=== PATIENT | female | born 1990 ===

== ENCOUNTER 2020-03-07 14:15 | Outpatient (REF) | payer MEDICAID, SELFPAY ==
[2020-03-11 07:27] LABS: SARS-CoV-2 RNA Undetected (Undetected); SARS-CoV-2 Specimen Source Nasal
== END 2020-03-07 14:35 ==
LOC: NCHCN 14:15
PROVIDERS: PCP Nurse Practitioner Family; Visit Provider Nurse Practitioner Family
DX: J02.9 Acute pharyngitis, unspecified (principal); R51.9 Headache, unspecified
CPT/HCPCS: U0003

== ENCOUNTER 2024-04-27 02:57 | Outpatient (CLI) | payer MEDICAID, SELFPAY ==
[2024-04-27 11:10] LABS: Panorama Kit Sent via Fed Ex
[2024-04-27 11:18] LABS: Abs Immature Grans 0.03 10^3/uL (0.0-0.06); Absolute Basophil Count 0.02 10^3/uL (0.0-0.2); Absolute Eosinophil Count 0.02 10^3/uL (0.0-0.7); Absolute Lymphocyte Count 1.62 10^3/uL (1.2-3.4); Absolute Monocyte Count 0.49 10^3/uL (0.1-0.8); Basophils % 0.2 %; Eosinophils % 0.2 %; HCT 35.3 % (36.0-46.0); HGB 12.6 g/dL (11.2-15.7); Immature Grans % 0.3 %; Lymphocytes % 14.8 %; MCH 30.1 pg (27.0-33.0); MCHC 35.7 % (32.0-36.0); MCV 84 fL (80-95); MPV 9.4 fL (8.0-11.0); Monocytes % 4.5 %; Platelet Count 287 10^3/uL (130-400); RBC 4.18 10^6/uL (3.93-5.22); RDW 11.8 % (11.7-14.6); RDW-SD 35.8 fL; WBC 10.94 10^3/uL (4.4-10.8)
[2024-04-27 11:19] LABS: Absolute Neutrophil Count 8.75 10^3/uL (1.2-6.7)
[2024-04-27 23:04] LABS: Hepatitis B Surface Ag Negative (Negative)
[2024-04-27 23:41] LABS: Hepatitis C Ab w Rflx HCV PCR Negative (Negative)
[2024-04-27 23:45] LABS: HIV-1/2 Ag & Ab Screen Negative (Negative)
[2024-04-28 12:06] LABS: Rubella IgG Ab (UVM) Negative (See Note)
[2024-04-28 12:09] LABS: Varicella IgG Antibody Positive (See Note)
[2024-04-30 14:09] LABS: Syphilis IgG w/Reflex Nonreactive (Nonreactive)
[2024-05-26 11:04] LABS: Result Summary NEGATIVE; Specimen WB Whole Blood
== END 2024-04-27 02:58 | disposition home or self-care (01) ==
LOC: LBO 02:58
PROVIDERS: PCP Nurse Practitioner Family; Visit Provider Advanced Practice Midwife
DX: Z34.91 Encounter for supervision of normal pregnancy, unspecified, first trimester (principal); Z3A.01 Less than 8 weeks gestation of pregnancy; R87.610 Atypical squamous cells of undetermined significance on cytologic smear of cervix (ASC-US)
CPT/HCPCS: 36415; 81220; 81222; 86787; 86803; 86850; 86900; 86901; 87340; 87389; 85025; 86762; 86780

== ENCOUNTER 2024-04-27 11:04 | Outpatient (REF) | payer MEDICAID, SELFPAY ==
--- NOTE | 2024-04-27 10:00 | PAPFT_PTH ---
PATIENT: Elda Rock LOC: [facility] [id number] AGE/SX: 33/F ROOM: RE04/27/[address]: Vinita Bella CNM : 1990 BED: DIS: 04/27/2024 SPEC #: [id number] RECD: 04/27/24 13:02 STATUS: LAURA REFred #: [id number] ANTONIO: 04/27/24 10:[address]: Vinita Bella DEPT: [facility] Cytology RECD BY: Adrianna Hopson ENTERED: 04/27/24 13:02 SP TYPE: PAPFT OTHR DR: Dennis Goncalves Tissues: 1 - CX/ENDOCX FOR PAP SMEARS Procedures: PAP THIN PREP/UVM Screening HPV DNA PROBE Comments: [id number] (HPV 16 & 18/45) (CHLAMYDIA/GC)
[2024-04-27 18:27] LABS: *AMPHETAMINES SCREEN URINE Negative (Negative); *BARBITURATES SCREEN URINE Negative (Negative); *BENZODIAZEPINES SCREEN URINE Negative (Negative); Cannabinoids THC Negative (Negative); Cocaine Screen,Urine Negative (Negative); METHADONE URINE SCREEN Negative (Negative); OPIATES URINE SCREEN Negative (Negative)
[2024-04-27 18:34] LABS: Tricyclic Antidepressants Negative (Negative)
[2024-04-28 11:16] LABS: Chlamydia Result Negative (Negative); GC Result Negative (Negative)
[2024-04-29 12:03] LABS: Fentanyl Scr w/Rfx Confirm Negative ng/mL (<1)
[2024-05-01 12:41] LABS: Buprenorphine Negative ng/mL (Cutoff: 5.0); Norbuprenorphine Negative ng/mL (Cutoff: 2.5)
== END 2024-04-27 11:05 | disposition home or self-care (01) ==
LOC: LBN 11:04
PROVIDERS: PCP Nurse Practitioner Family; Visit Provider Advanced Practice Midwife
DX: Z34.91 Encounter for supervision of normal pregnancy, unspecified, first trimester (principal); Z3A.01 Less than 8 weeks gestation of pregnancy; R87.610 Atypical squamous cells of undetermined significance on cytologic smear of cervix (ASC-US)
CPT/HCPCS: 80307; 80348; 87491; 87591; 88142; 87086; 87624

== ENCOUNTER 2024-06-25 00:26 | Outpatient (CLI) | payer MEDICAID, SELFPAY ==
--- NOTE | 2024-06-25 06:58 | DI.US_ITS ---
Exam(s) US OB 2-3 TRIMESTER EXAM: US OB 2-3 TRIMESTER CLINICAL HISTORY: 19 wk anatomy survey,Z34.91. TECHNIQUE: Transabdominal obstetrical ultrasound performed. COMPARISON: US POCUS EXAM from 03/22/2024 FINDINGS: Number of fetuses: 1 position: Variable Placental location: Anterior, grade 0. no evidence of previa. BIOMETRIC DATA: BPD: 20 weeks 4 days, HC: 20 weeks 5 days, AC: 20 weeks 4 days, FL: 20 weeks 1 day, Cisterna magna: 5 Cerebellum: 2.0 cm Lateral ventricle: 6 mm EFW: 355, 63 percentile, Composite Age: 20+ 4 weeks XAVIER: November 12 Heart Rate: 142 Amniotic fluid : Amount of fluid is visually within normal limits. ANATOMICAL SURVEY: Four-chambered heart: Unremarkable. LVOT: Unremarkable. RVOT: Unremarkable. Left-sided stomach: Unremarkable. urinary bladder: Unremarkable. Bilateral kidneys: Unremarkable. Three-vessel cord: Unremarkable. Cord insertion: Unremarkable. Posterior fossa:Unremarkable. ventricles: Unremarkable. nose: Unremarkable. lips: Unremarkable. palate: Unremarkable. spine: Unremarkable. Two arms and two legs: Unremarkable. IMPRESSION: 1. Single live intrauterine gestation with composite age of 20 weeks 4 days. 2. Normal anatomic survey. DATA REPOSITORY:
== END 2024-06-25 00:46 ==
LOC: DI 00:27
PROVIDERS: PCP Nurse Practitioner Family; Visit Provider Advanced Practice Midwife
DX: Z34.92 Encounter for supervision of normal pregnancy, unspecified, second trimester (principal); Z3A.20 20 weeks gestation of pregnancy
CPT/HCPCS: 76805

== ENCOUNTER 2024-08-19 03:47 | Outpatient (CLI) | payer MEDICAID, SELFPAY ==
[2024-08-19 09:58] LABS: HCT 34.6 % (36.0-46.0); HGB 11.9 g/dL (11.2-15.7); MCH 31.3 pg (27.0-33.0); MCHC 34.4 % (32.0-36.0); MCV 91 fL (80-95); MPV 9.5 fL (8.0-11.0); Platelet Count 220 10^3/uL (130-400); RDW 12.2 % (11.7-14.6)
[2024-08-19 10:40] LABS: Glucose,1 Hr (Glucola) 122 mg/dL (80-140)
== END 2024-08-19 03:48 | disposition home or self-care (01) ==
LOC: LBO 03:48
PROVIDERS: Advanced Practice Midwife; PCP Nurse Practitioner Family; Visit Provider Advanced Practice Midwife
DX: Z34.92 Encounter for supervision of normal pregnancy, unspecified, second trimester
CPT/HCPCS: 36415; 82950; 85027

== ENCOUNTER 2024-09-02 13:00 | Outpatient (REF) | payer MEDICAID, SELFPAY ==
[2024-09-02 16:50] LABS: *AMPHETAMINES SCREEN URINE Negative (Negative); *BARBITURATES SCREEN URINE Negative (Negative); *BENZODIAZEPINES SCREEN URINE Negative (Negative); Cannabinoids THC Negative (Negative); Cocaine Screen,Urine Negative (Negative); METHADONE URINE SCREEN Negative (Negative); OPIATES URINE SCREEN Negative (Negative)
[2024-09-02 16:51] LABS: Tricyclic Antidepressants Negative (Negative)
[2024-09-03 11:31] LABS: Fentanyl Scr w/Rfx Confirm Negative ng/mL (<1)
[2024-09-08 08:40] LABS: Buprenorphine Negative ng/mL (Cutoff: 5.0); Norbuprenorphine Negative ng/mL (Cutoff: 2.5)
== END 2024-09-02 13:01 | disposition home or self-care (01) ==
LOC: LBN 13:00
PROVIDERS: Advanced Practice Midwife; PCP Nurse Practitioner Family; Visit Provider Advanced Practice Midwife
DX: Z34.83 Encounter for supervision of other normal pregnancy, third trimester (principal); Z3A.28 28 weeks gestation of pregnancy
CPT/HCPCS: 80307; 80348

== ENCOUNTER 2024-10-15 11:39 | Outpatient (REF) | payer MEDICAID, SELFPAY | END 2024-10-15 11:40 | disposition home or self-care (01) | LOC: LBN 11:39 | PROVIDERS: PCP Nurse Practitioner Family; Visit Provider Advanced Practice Midwife | DX: Z3A.36 36 weeks gestation of pregnancy (principal); Z34.83 Encounter for supervision of other normal pregnancy, third trimester | CPT/HCPCS: 87081 ==

== ENCOUNTER 2024-11-15 13:57 | Inpatient (IN) | payer MEDICAID, SELFPAY ==
[2024-11-15] VITALS (31 sets, daily range): BP systolic 112–144; BP diastolic 67–88; PULSE 90–118; RESP 18; TEMP 36.8–37.9; O2SAT 96–100; BMI 28.3
[2024-11-15 14:20] LABS: HCT 32.3 % (36.0-46.0); HGB 10.9 g/dL (11.2-15.7); MCH 28.3 pg (27.0-33.0); MCHC 33.7 % (32.0-36.0); MCV 84 fL (80-95); MPV 10.1 fL (8.0-11.0); Platelet Count 237 10^3/uL (130-400); RBC 3.85 10^6/uL (3.93-5.22); RDW 12.5 % (11.7-14.6); RDW-SD 37.5 fL; WBC 13.25 10^3/uL (4.4-10.8)
[2024-11-15] MEDS: hydrOXYzine PAMOATE 25 MG CAP 50 MG PO (14:56)
[2024-11-15] MEDS: MORPHine 10 MG/ML VIAL IM (14:56)
--- NOTE | 2024-11-15 16:04 | W.PM.OBHPL1 ---
Date of service: 11/15/24 Time of Service: 16:04 Assessment and Plan Assessment and plan (1) Prolonged latent phase of labor: Status: Acute Assessment and plan: Admit to Center and routine admission labs. Comfort measures. Anticipate . Discussed therapeutic rest option due to her fatigue or continuing to observe labor progress. She strongly desires rest at this time and was admitted for therapeutic rest with morphine 10 mg IM and vistaril PO. Sherry Mason JUAN DAVID will be assuming her care at 1700. OB-HPI Labor/Delivery History of Present Illness Reason for Visit: rule out labor Chief Complaint: Uterine Contractions. XAVIER Calculator Estimated Delivery Date Method Current WG Current Estimate 11/11/24 Ultrasound #1 40w 4d Other Estimates 10/17/24 LMP (Uncertain) 44w 1d Comments: Elda has been experiencing contractions all night. She got very little sleep and she complains of fatigue. History of Present Expected Delivery Route/Plan - CNM FOB/ - Edinson Rock (first child) BB no circ Interested in using the large tub in labor, Took empowered birthing classes. Rubella non-immune, offer MMR (pt plans to accept) GBS negative Specific Issues/Plan 1. cfDNA- low risk male, CF carrier screen - neg 2. 5P screen positive, initial UDS negative, 28 wk UDS=negative Assessment: History Reviewed & Current Informed Consent Informed Consent: Risk,Benefits,Alternatives Discussed (therapeutic rest or continuing with prodromal labor. ) PFSH All Active Problems (Updated 11/15/24 @ 16:07 by Ana Hui CNM) Prolonged latent phase of labor (Acute) Rubella non-immune status, antepartum (Acute) Mild exercise-induced asthma (Acute) (Acute) Medical History (Updated 11/15/24 @ 16:07 by Ana Hui CNM) Positive test Social History Smoking/Tobacco Use Status: Never Smoking risk assessment performed?: Yes Alcohol Intake: never Substance use type: does not use Housing: house Do you feel safe at home: Yes Do you feel safe in your relationship?: Yes History History 1 Para 0 Hx # Term Pregnancies 0 Multiple births 0 Hx # Pregnancies 0 Ectopic pregnancies 0 AB induced 0 Hx Number of Living Children 0 AB spontaneous 0 Meds Allergies and Home Medications Allergies Allergy/AdvReac Type Severity Reaction Status Date / Time No Known Allergies Allergy Verified 11/12/24 10:22 Home Medications ?Medication ?Instructions ?Recorded ?Confirmed ?Type vits 75-iron 28 mg-folic 1 pkg PO DAILY 03/22/24 11/15/24 History acid 800 mcg-omega3 440 mg oral pack (One Daily ) Exam Physical Exam Vital signs: Temp Pulse Resp BP Pulse Ox 98.4 F 98 H 18 136/88 100 11/15/24 14:11/15/24 14:28 11/15/24 14:11/15/24 14:11/15/24 14:28 Vital Signs Reviewed: Yes Constitutional Constitutional: no acute distress Detailed Labor and Delivery Exam Dilation: 2 Effacement (%): 80 station: +1 Cervix position: posterior Consistency: soft Lincoln Score: Cervical Points Exam 0 1 2 3 Dilation Closed 1-2cm 3-4 cm 5-6cm Effacement 0-30% 40-50% 60-70% 80% Consistency Firm Medium Soft Station -3 -2 -1,0 +1,+2 Position Posterior Mid Anterior Amniotic Membrane Status: Intact Monitor Mode: External Contraction Frequency(min): every 3 Contraction Duration(sec): 40-60 Contraction Intensity: Moderate Fetus A Heart Rate Baseline: 140 Monitor Accelerations: 15 X 15 Monitor Decelerations: None Variability: Moderate (6-25 BPM) Presentation: Cephalic Categories: Category I Est. Weight: 7 lb Date of Membrane Rupture: 11/15/24 Time of Membrane Rupture: 15:29 HEENT Exam HEENT Exam: Normal Respiratory Exam Respiratory Exam: Normal Cardiovascular Exam Cardiovascular Exam: Normal Abdominal Exam Abdominal Exam: Normal Exam Exam: Normal Extremities Exam Extremities Exam: Normal Skin Exam Skin Exam: Normal Psychiatric Exam Psychiatric Exam: Normal Results Results Group Beta Strep: N/A Blood Type: O+ Abnormal Lab Findings: Abnormal Labs 11/15/24 14:10 WBC 13.25 H RBC 3.85 L Hgb 10.9 L Hct 32.3 L Risk Assessment Risk for Shoulder Dystocia Historical/Initial OB: NEGATIVE FOR: Pelvic Abnormality, Pre- BMI>30, Previous Shoulder Dystocia or Previous Macrosomia 36 Weeks: NEGATIVE FOR: Current Gestational DM, EFW>4500gms or Maternal Weight Gain>40lbs 40 Weeks: POSTIVE FOR: Post Dates; NEGATIVE FOR: EFW> 4500 gms or Maternal Weight Gain >40lb Increased Risk?: Yes Risk for Pre-Eclampsia Date Initiated/Initials: not indicated. JK Yes, if one or more: NEGATIVE FOR: Hx Pre-E/Gest HTN, Chronic HTN, Multiple Gestation, Pre-gestational DM, Renal Disease, Systemic Lupus or APA Syndrome Yes, if 2 or more: POSITIVE FOR: Nulliparity; NEGATIVE FOR: Age>= 35 yrs, >10yr btwn pregnancies, BMI>30, ethinicty, Mother/Sister w/ Pre-E or Previous IUGR Risk for Post- Hemorrhage Initial: NEGATIVE FOR: Multiple Gestation, Previous PPH, Known Clotting Deficiency, Grand Multiparity or Anticoagulation 36 Weeks: NEGATIVE FOR: Anemia, hgb<10, Low platelets(thrombocytopenia), Gestational HTN or Pre-E, Polyhydraminios or EFW>4500gms 40 Weeks: NEGATIVE FOR: Anemia, hgb<10, Low platelets (thrombocytopenia), Gestation HTN or Pre-E, Polyhydraminios or EFW>4500gms At Risk?: No Risks Reviewed Risks Reviewed Upon Admission: Yes
--- NOTE | 2024-11-15 16:18 | W.OBNST ---
Date of service: 11/15/24 Time of Service: 16:18 NST Evaluation Reason for NST Reasons for Nonstress Test: FALSE LABOR Gestational Age Gestational Age in Weeks and Days: 40 Weeks and 4Days Test and Monitor Explained Test/Monitor Explained: Test Explained, Monitor Explained and Patient Verbalized Understanding Vital Signs Blood Pressure: 136/88 Pulse: 98 Temperature: 98.4 F Urine Results Urine Protein: Negative Urine Ketones: Negative Urine Glucose: Negative Urine Blood: Negative NST Information Date on Monitor: 11/15/24 Time on Monitor: 13:30 Date off Monitor: 11/15/24 Time off Monitor: 13:56 Total Time on Monitor: 26 NST Interventions: Reposition Patient and Notify Provider Contraction Frequency: 3 NST Evaluation Patient States Movement: Present FHR Baseline: 150 Variability: Moderate 6-25 bpm Accelerations: 15x15 Decelerations: None NST Results: Reactive Note Ultrasound Done: N/A. NST Note Note: Elda has been having regular contractions since last night. She is tired and got very little sleep. 2 cms/+1/ soft posterior cervix. Reactive. NST. After reviewing options with Elda and her Edinson, Elda is admitted in early labor for therapeutic rest, NST Reviewed and Verified by: Ana Hui
--- NOTE | 2024-11-15 21:40 | W.PM.OBNL1 ---
Date of service: 11/15/24 Time of Service: 21:40 Informed Consent Informed Consent: Augmentation of Labor, Regional Anesthesia and Risk,Benefits,Alternatives Discussed (therapeutic rest or continuing with prodromal labor. ) Pelvic Exam Dilation: 3 Effacement (%): 80 station: 0 Cervix Position: mid Consistency: soft Vaginal Exam Presentation: Vertex Contractions Monitor Mode: External Contraction Frequency(min): 4-5 mins by observation Contraction Duration(sec): 45-60 sec Intensity: Mild/Moderate (By observation/palpation) Fetus A Monitor: Doppler Heart Rate Baseline: 155 Presentation: Cephalic FHR Rhythm: Regular Accelerations: Present Decelerations: None Amniotic Membrane Status: Ruptured (Leaking clear fluid) Rupture Method: Spontaneous Date of Membrane Rupture: 11/15/24 Time of Membrane Rupture: 15:30 Assessment and Plan Assessment and plan (1) Amniotic fluid leaking: Start date: 11/15/24 Start time: 15:30 Status: Acute Assessment and plan: - 34-year-old at 40+4 here with prodromal labor, ROM x 6.5 hours - Discussed SVE findings with patient: 1 cm change with cervix moving more anteriorly over approx 8 hours, slowly progressing. Reviewed with patient that latent labor is highly variable in terms of the amount of time it can take to make cervical change. - Reviewed options with Elda and Edinson: Continue labor with or without another trial of Morphine rest (with the addition of IV Morphine to see if this improves pain mgmt) vs epidural analgesia to achieve longer period of rest prior to the 2nd stage and can aid in the relaxation of the pelvis. Reviewed IV placement, IVF bolus, inability to get out of bed or eat solids, urinary catheter placement, cEFM & toco, possibility of need for Pitocin augmentation if contractions space/for suboptimal contraction pattern. Elda wishes to proceed with epidural. - Anesthesia called. Anticipate their arrival in 20 mins. - Anticipate tomorrow. (2) Prolonged latent phase of labor: Status: Acute (3) Rubella non-immune status, antepartum: Status: Acute Objective Abnormal lab results 11/15/24 Range/Units 14:10 WBC 13.25 H (4.4-10.8) 10^3/uL RBC 3.85 L (3.93-5.22) 10^6/uL Hgb 10.9 L (11.2-15.7) g/dL Hct 32.3 L (36.0-46.0) % Temp Pulse Resp BP Pulse Ox 98.2 F 98 H 18 136/88 100 11/15/24 21:23 11/15/24 14:28 11/15/24 14:28 11/15/24 14:28 11/15/24 14:28 Laboratory Results WBC Cancelled 11/15/24 21:31 RBC Cancelled 11/15/24 21:31 Hgb Cancelled 11/15/24 21:31 Hct Cancelled 11/15/24 21:31 MCV Cancelled 11/15/24 21:31 MCH Cancelled 11/15/24 21:31 MCHC Cancelled 11/15/24 21:31 RDW Cancelled 11/15/24 21:31 Plt Count Cancelled 11/15/24 21:31 MPV Cancelled 11/15/24 21:31 ABO/Rh O Positive 11/15/24 14:10 Antibody Screen NEGATIVE 11/15/24 14:10 Vital Signs Reviewed: Yes Objective Narrative Objective Narrative: O: Breathing hard through contractions, coping well FHTs (IA): Baseline 155, +accels, no decels by auscultation Contractions: q 4-5 mins by observation, leaking clear amniotic fluid Subjective Interval history since last seen: Elda is a 34-year-old at 40+4 who was admitted for therapeutic rest for prodromal labor. After Morphine and Vistaril was administered, she tried to lay down and her water broke about 15 minutes later, around 15:30. Since then she has only managed to get in short naps between contractions. She was in the tub for awhile during which her contractions spaced and she was able to relax more. Was very reluctant for any futher cervical exams during labor because the first one was so uncomfortable. But now she is starting to get curious about where she's at and is requesting an exam. Results Hemoglobin/Hematocrit: Hgb Cancelled 11/15/24 21:31 Hct Cancelled 11/15/24 21:31 Abnormal Lab Findings: Abnormal Labs 11/15/24 14:10 WBC 13.25 H RBC 3.85 L Hgb 10.9 L Hct 32.3 L
[2024-11-15] MEDS: Lactated Ringers 500 ML IV (22:59)
--- NOTE | 2024-11-15 23:00 | W.ANESPRE ---
General Info Date of Service Date Performed: 11/15/24 Height: 4 ft 11 in Weight: 63.503 kg Body Mass Index (BMI): 28.3 Meds Allergies and Home Medications Allergies Allergy/AdvReac Type Severity Reaction Status Date / Time No Known Allergies Allergy Verified 11/12/24 10:22 Home Medication ?Medication ?Instructions ?Recorded vits 75-iron 28 mg-folic 1 pkg PO DAILY 03/22/24 acid 800 mcg-omega3 440 mg oral pack (One Daily ) Current Visit Medications: Current Medications Generic Name Dose Route Start Last Admin Trade Name Frebaudilio PRN Reason Stop Dose Admin Bupivacaine HCl 0 ml 11/15/24 22:40 Bupivacaine 0.25% Pres-Free 10 Ml Vial EP 11/15/24 22:41 NOW ONE Fentanyl 0 mcg 11/15/24 22:40 Fentanyl 100 Mcg/2 Ml Vial EP 11/15/24 22:41 NOW ONE Fentanyl/Ropivacaine 200 ml 11/15/24 22:45 Fentanyl/Ropivacaine 2 Mcg/Ml And 0.1% 200 Ml Cadd Cassette EP DIRECTED [facility] Ringer's Solution 500 mls @ 500 mls/hr 11/15/24 22:40 IV 11/15/24 23:39 BOLUS ONE IV Miscellaneous Supplies 1 each 11/15/24 14:00 Iv Access IV DIRECTED [facility] Multivitamins 1 tab 11/16/24 08:30 Multivitamin W/Ca,Fe Tab PO DAILY [facility] Ropivacaine 0 mg 11/15/24 22:40 Ropivacaine 0.2% 40 Mg/20 Ml Vial EP 11/15/24 22:41 NOW ONE Sodium Chloride 0 ml 11/15/24 13:57 Normal Saline Flush 10 Ml Syr IVP PRN PRN Sodium Chloride 0 ml 11/15/24 20:00 Normal Saline Flush 10 Ml Syr IVP BID NAKIA Sodium Chloride 0 ml 11/15/24 13:57 Normal Saline 10 Ml Vial IJ DIRECTED PRN PFSH Active Problems Active Problems: Problem Status Onset Code Amniotic fluid leaking Acute O42.90 Prolonged latent phase of labor Acute O63.0 Rubella non-immune status, antepartum Acute O09.899, Z28.39 Mild exercise-induced asthma Acute J45.990 Acute Z34.90 Medical History Medical History (Updated 11/15/24 @ 21:40 by Sherry Mason CNM) Positive test Tobacco Smoking/Tobacco Use Status: Never Alcohol Alcohol Intake: never Substance Use Substance use type: does not use Prental History History 1 Para 0 Hx # Term Pregnancies 0 Multiple births 0 Hx # Pregnancies 0 Ectopic pregnancies 0 AB induced 0 Hx Number of Living Children 0 AB spontaneous 0 Vital Signs and Lab Results Vital Signs Most Recent Vital Signs in EMR: Most Recent Vital Signs Temp Pulse Resp BP Pulse Ox 37.0 C 98 H 18 136/88 100 11/15/24 22:05 11/15/24 14:28 11/15/24 14:28 11/15/24 14:28 11/15/24 14:28 Lab Results 11/15/24 14:10 Blood Type / Crossmatch: Antibody Screen NEGATIVE Today Complete Blood Count: WBC, (4.4-10.8) 13.25 10^3/uL H Today, 14:10 RBC, (3.93-5.22) 3.85 10^6/uL L Today, 14:10 Hgb, (11.2-15.7) 10.9 g/dL L Today, 14:10 Hct, (36.0-46.0) 32.3 % L Today, 14:10 Plt Count, (130-400) 237 10^3/uL Today, 14:10 Anesthesia Assessment and Plan Anesthesia History Personal History: No History of Anesthesia Complications Family History: No Family History of Anesthesia Complications Exercise Tolerance Exercise Tolerance: Metabolic Equivalents>4 Pertinent Negatives Pertinent Negatives: No Major Cardiovascular Symptoms or Complaints and No Major Pulmonary Symptoms or Complaints Cardiac & Pulmonary Exam Cardiac Exam: Normal S1/S2 Heart Sounds Pulmonary Exam: Clear Bilateral Breath Sounds Implantable Cardiac Device Does patient have a Pacemaker or an ICD?: No Airway Exam Known Difficult Airway: No Mallampati Class: 2 Mouth Opening: Normal (> 3cm) Thyromental Distance: Greater than 3 cm Neck Range of Motion: Full ROM Neck Circumference: Normal Teeth Condition: Normal Dentition ASA Classification ASA Score: ASA 2 Emergency Case?: No NPO Status NPO Status: Full Stomach Status Status: Confirmed Anesthesia Plan Resuscitation Status: Full Code Anesthesia Technique: Labor Epidural Airway Planned: Natural Airway Monitors Used: Standard Monitors
[2024-11-15] MEDS: FentaNYL/ROPIvacaine 2 mcg/ml and 0.1% 200 ML CADD Cassette EP (23:30)
--- NOTE | 2024-11-15 23:49 | W.ANESNEU ---
Epidural/Spinal Catheter Date Performed: 11/15/24 Procedure Start: 23:25 Procedure Stop: 23:50 Requesting Provider: Sherry Mason Procedure Location: Obstetrics Reason Performed: Labor Epidural Standard Monitors Applied: Blood Pressure, SpO2 and See EMR for corresponding vital signs Patient Position: Sitting Sedation Given (Indicate Dose Given): No Sedation given Patient Mental Status: Awake Sterility: Hand Hygiene, Surgical Cap, Surgical Mask, Sterile Gloves, Sterile Drape/Sheet and Chlorhexidine Procedure Location: L3-L4 Interspace Epidural Needle: Tuohy 18 Gauge Needle Length: 3.5 Inch Needle Approach: Midline Epidural Procedure: Skin Prepped, Sterile Drape Placed, 1% Lidocaine to skin and subcutaneous tissue with 25G needle, Tuohy Needle placed, KINJAL to Saline Used, Epidural Catheter Placed, Negative Heme, Negative CSF Flow and Tuohy Needle Removed Catheter Placed?: Catheter Placed (@2338) Test Dose (Indicate Dose Given): 3ml 1.5% Lidocaine with 1:200K Epinephrine Given (@2339) and Negative Test Dose Loss of Resistance Depth (cm): 5 Catheter depth at skin (cm): 11 Dressing: Sorbaview Dressing Placed and Mastisol Used Epidural Provider Bolus (Indicate Dose Given): Total bolus dose given in 3-5 ml divided doses and Total Ropivacaine 0.1% with Fentanyl 2mcg/ml Given from pump. (ml) Dose:: 5ml + 3ml =8 mL total Additives (Indicate Dose Given ): None Infusion Medication: Medication Infusion Began Medication Infusion: Ropivacaine 0.1% with Fentanyl 2mcg/ml (@2334) Maintenance Infusion Rate (ml/hour): 10 PCEA Bolus Dose (ml): 5 Block Level: N/A Paresthesia: None Ultrasound: Not Used Number of Attempts (See previous attempts in note section): 1 Procedure Tolerated: No Complications and Patient tolerated well Procedure Outcome: Successful Procedure Comment:: Feeling a bit of the contraction on right side only, positioned to right sidelying position. VSS Performed By: Shaye Iglesias
[2024-11-16] VITALS (86 sets, daily range): BP systolic 99–123; BP diastolic 55–87; PULSE 78–130; RESP 12–18; TEMP 36.5–37.4; O2SAT 92–100
[2024-11-16] MEDS: Lactated Ringers 1,000 ML 125 ML IV (00:09)
--- NOTE | 2024-11-16 00:39 | PGE_ITS ---
Date of service: 11/16/24 Time of Service: 02:23 Informed Consent Informed Consent: Augmentation of Labor, Regional Anesthesia and Risk,Benefits,Alternatives Discussed (therapeutic rest or continuing with prodromal labor. ) Contractions Monitor Mode: External Contraction Frequency(min): q 7-9 mins Contraction Duration(sec): 60 Intensity: Mild/Moderate Fetus A Monitor: External (US) Heart Rate Baseline: 155 Variability: Moderate (6-25 BPM) Categories: Category II Accelerations: Present Decelerations: Late and Prolonged Recurrence: Periodic Amniotic Membrane Status: Ruptured Assessment Note: Cat 2 Assessment and Plan Assessment and plan (1) Amniotic fluid leaking: Status: Acute (2) Prolonged latent phase of labor: Status: Acute (3) tachycardia affecting management of mother: Status: Acute Assessment and plan: - 34-year-old at 40+5 admitted for prodromal labor. - Labor Course: Arrived 2 cm on 11/15, ROM shortly after given meds for therapeutic rest ~ 15:30, leaking clear fluid x 10 hours. - cEFM applied just prior to epidural, notably concerning for tachycardia during epidural placement with periods of minimal variability. Maternal temp of 100.2, but improved on rechecks (99.2, 99.4, 99). IVF Bolus given and multiple changes in maternal position trialed. With no improvement after intrauterine resuscitation efforts, empiric treatment for IAI initiated including 1,000 IV Tylenol and Amp/Gent. Back up, MD Schwartz called in from home due to concern for Cat 2 tracing, remote from delivery. - Discussed above and concerns of FIOL with patient. [place] in to meet patient and answered questions. - Will continue to monitor x 30 mins for FHT improvement after IV Tylenol and Abx. Addendum: At approx 01:45 SVE 4/90/0, +scalp stim, however inadvertently done just before a contraction. Discussed SVE findings and FHR tracing with Nina. In between contractions, baseline of 160-170 with minimal variability with late decels. Overall impression: Continued Cat 2 tracing, unable to initiate Pitocin, remote from delivery. Recommendation made for pCS. Patient and receptive to and accepting of this recommendation. Mari Schwartz already in house and to patient's bedside for consent. Objective Abnormal lab results 11/15/24 Range/Units 14:10 WBC 13.25 H (4.4-10.8) 10^3/uL RBC 3.85 L (3.93-5.22) 10^6/uL Hgb 10.9 L (11.2-15.7) g/dL Hct 32.3 L (36.0-46.0) % Temp Pulse Resp BP Pulse Ox 99.4 F 102 H 18 109/68 96 11/16/24 00:01 11/16/24 00:38 11/15/24 14:28 11/16/24 00:32 11/16/24 00:38 Laboratory Results WBC Cancelled 11/15/24 21:31 RBC Cancelled 11/15/24 21:31 Hgb Cancelled 11/15/24 21:31 Hct Cancelled 11/15/24 21:31 MCV Cancelled 11/15/24 21:31 MCH Cancelled 11/15/24 21:31 MCHC Cancelled 11/15/24 21:31 RDW Cancelled 11/15/24 21:31 Plt Count Cancelled 11/15/24 21:31 MPV Cancelled 11/15/24 21:31 ABO/Rh O Positive 11/15/24 14:10 Antibody Screen NEGATIVE 11/15/24 14:10 Vital Signs Reviewed: Yes Objective Narrative Objective Narrative: O: NAD, comfortalble with epidural, Maternal temp 100.1 to 99.2 to 99.4, cEFM: Wandering baseline from 145 to 165 minimal to moderate variablility, episodic decels prior to contractions, and periodic late decels. Cat 2 tracing. Amelia: Ctx q 4-9 mins Subjective Interval history since last seen: Pt is now comfortable with her epidural. Edinson supportive at bedside. Results Hemoglobin/Hematocrit: Hgb Cancelled 11/15/24 21:31 Hct Cancelled 11/15/24 21:31 Abnormal Lab Findings: Abnormal Labs 11/15/24 14:10 WBC 13.25 H RBC 3.85 L Hgb 10.9 L Hct 32.3 L
[2024-11-16] MEDS: ACETAMINOPHEN 1,000 MG/100 ML BTL 400 MG IVPB (00:51)
--- NOTE | 2024-11-16 00:59 | W.PM.OBNL1 ---
Date of service: 11/16/24 Time of Service: 00:59 Informed Consent Informed Consent: Augmentation of Labor, Regional Anesthesia and Risk,Benefits,Alternatives Discussed (therapeutic rest or continuing with prodromal labor. ) Fetus A Heart Rate Baseline: 150 Presentation: Vertex Variability: Moderate (6-25 BPM) Categories: Category II Accelerations: 15 X 15 Decelerations: Late Assessment Note: Earlier, soon after the epidural, there were periods of minimal variability and tachycardia but those have recently resolved. Assessment and Plan Assessment and plan (1) : Status: Acute (2) Prolonged latent phase of labor: Status: Acute Assessment and plan: G0 @40.5wks now with ROM x almost 10hrs, only 3cm dilated with Cat 2 FHT and concern for intra-amniotic infection given maternal low grade temp (99-100.1) and tachycardia with periods of minimal variability. At this time the baseline has dropped below 160 most of the time and there has been improvement in the variability. She continues to have intermittent small late decels. I spoke with the patient and her partner and they are aware of the fact that we are concerned about the heart tracing and that we might need to do a section if things worsen quickly or don't improve over time. (3) Amniotic fluid leaking: Status: Acute Objective Abnormal lab results 11/15/24 Range/Units 14:10 WBC 13.25 H (4.4-10.8) 10^3/uL RBC 3.85 L (3.93-5.22) 10^6/uL Hgb 10.9 L (11.2-15.7) g/dL Hct 32.3 L (36.0-46.0) % Temp Pulse Resp BP Pulse Ox 99.4 F 108 H 18 117/69 99 11/16/24 00:01 11/16/24 00:58 11/15/24 14:28 11/16/24 00:52 11/16/24 00:58 Laboratory Results WBC Cancelled 11/15/24 21:31 RBC Cancelled 11/15/24 21:31 Hgb Cancelled 11/15/24 21:31 Hct Cancelled 11/15/24 21:31 MCV Cancelled 11/15/24 21:31 MCH Cancelled 11/15/24 21:31 MCHC Cancelled 11/15/24 21:31 RDW Cancelled 11/15/24 21:31 Plt Count Cancelled 11/15/24 21:31 MPV Cancelled 11/15/24 21:31 ABO/Rh O Positive 11/15/24 14:10 Antibody Screen NEGATIVE 11/15/24 14:10 Vital Signs Reviewed: Yes Subjective Interval history since last seen: I was asked to consult on pt's FHT and be present in case of sudden changes. Results Hemoglobin/Hematocrit: Hgb Cancelled 11/15/24 21:31 Hct Cancelled 11/15/24 21:31 Abnormal Lab Findings: Abnormal Labs 11/15/24 14:10 WBC 13.25 H RBC 3.85 L Hgb 10.9 L Hct 32.3 L
[2024-11-16] MEDS: ACETAMINOPHEN 1,000 MG/100 ML BAG 400 MG (01:00)
[2024-11-16] MEDS: AMPICILLIN SODIUM 2 GM in Normal Saline 100 ML IVPB (01:03)
--- NOTE | 2024-11-16 02:16 | W.PM.OBNL1 ---
Date of service: 11/16/24 Time of Service: 02:17 Informed Consent Informed Consent: Augmentation of Labor, Regional Anesthesia and Risk,Benefits,Alternatives Discussed (therapeutic rest or continuing with prodromal labor. ) Pelvic Exam Dilation: 4 Effacement (%): 90 station: -1 Fetus A Heart Rate Baseline: 140 Presentation: Vertex Variability: Moderate (6-25 BPM) Categories: Category II Accelerations: 15 X 15 Decelerations: Late Assessment Note: Just prior to this pt had a long period of minimal variability with tachycardia to 160s again. Assessment and Plan Assessment and plan (1) Category II heart rate tracing during labor and delivery: Status: Acute Assessment and plan: We discussed the situation with the patient and her partner. FHT is Cat 2 remote from delivery with some fairly ominous segments of minimal variability, tachycardia and recurrent late decels. This is intermixed with segments of moderate variability and normal baseline but given her early stage of labor I think it is jacobs to proceed with a C section. They are agreeable to this plan. The surgery was discussed including risks and recovery and all questions were answered. Objective Abnormal lab results 11/15/24 Range/Units 14:10 WBC 13.25 H (4.4-10.8) 10^3/uL RBC 3.85 L (3.93-5.22) 10^6/uL Hgb 10.9 L (11.2-15.7) g/dL Hct 32.3 L (36.0-46.0) % Temp Pulse Resp BP Pulse Ox 99.3 F 118 H 18 110/63 98 11/16/24 01:47 11/16/24 02:13 11/15/24 14:28 11/16/24 02:12 11/16/24 02:13 Laboratory Results WBC Cancelled 11/15/24 21:31 RBC Cancelled 11/15/24 21:31 Hgb Cancelled 11/15/24 21:31 Hct Cancelled 11/15/24 21:31 MCV Cancelled 11/15/24 21:31 MCH Cancelled 11/15/24 21:31 MCHC Cancelled 11/15/24 21:31 RDW Cancelled 11/15/24 21:31 Plt Count Cancelled 11/15/24 21:31 MPV Cancelled 11/15/24 21:31 ABO/Rh O Positive 11/15/24 14:10 Antibody Screen NEGATIVE 11/15/24 14:10 Subjective Interval history since last seen: Pt still comfortable with her epidural. Results Hemoglobin/Hematocrit: Hgb Cancelled 11/15/24 21:31 Hct Cancelled 11/15/24 21:31 Abnormal Lab Findings: Abnormal Labs 11/15/24 14:10 WBC 13.25 H RBC 3.85 L Hgb 10.9 L Hct 32.3 L
--- NOTE | 2024-11-16 03:16 | PLAC_PTH ---
PATIENT: Elda Rock LOC: OBS U#:[id number] AGE/SX: 34/F ROOM: OBS.305 RE11/15/[address]: Ana Hui : 1990 BED: A DIS: 11/18/2024 SPEC #: [id number] RECD: 11/16/24 12:37 STATUS: LAURA REQ #: [id number] ANTONIO: 11/16/24 03:[address]: Mari Schwartz DEPT: Surgical Specimen RECD BY: Adrianna Hopson ENTERED: 11/16/24 12:38 SP TYPE: PLAC OTHR DR: Ana Hui Tissues: 1 - PLACENTA (3RD TRIMESTER) Procedures: GROSS AND MICRO LEVEL 5 Comments: [id number]
[2024-11-16] MEDS: Bupivacaine 0.25% Pres-Free 30 ML VIAL (03:18)
--- NOTE | 2024-11-16 04:02 | ROE_ITS ---
Operative Note Operative Note PRE-OP DIAGNOSIS: 40.5wk IUP Cat 2 FHT remote from delivery POST-OP DIAGNOSIS: same PROCEDURE: Section SURGEON: Mari Schwartz ASSISTING SURGEON: Darwin Ledezma Refer to Anesthesia Record ESTIMATED BLOOD LOSS: 500 COMPLICATIONS: None Patient was transported to: floor Patient's condition: stable Indications: P0 @ 40.5wks with ROM in latent labor, Cat 2 FHT with periods of tachycardia and minimal variability as well as late decelerations. Slow cervical change to 4cm, still remote from delivery. Findings: Normal appearing uterus, ovaries, tubes. Normal appearing placenta with a 3 vessel cord. Thin meconium. Male infant, apgars 9/9, 8lb 10oz. Procedure Description: After informed consent was signed the patient was taken to the operating room. She was given spinal anesthesia, SCDs were placed on her legs and a frankel catheter was introduced into her bladder. The heart rate was checked and was normal. She underwent abdominal and vaginal prep and was draped in the dorsal supine position with a leftward tilt. The patient was tested and spinal anesthesia was found to be adequate. A time out was performed. The skin was injected with bupivocaine along the length of the planned incision. A skin incision was made with the scalpel and carried down to the underlying layer of fascia with blunt dissection. The fascia was incised on either side of the midline and the fascial incision extended laterally with a combination of sharp and blunt dissection. The inferior edge of the fascia was grasped with aleena clamps and tented up and dissected down with a combination of sharp and blunt dissection. Then the superior edge of the fascial incision was grasped with aleena clamps and tented up and dissected down with a combination of sharp and blunt dissection. The rectus muscles were in the midline and the peritoneum was entered bluntly. The peritoneal incision was extended laterally with blunt dissection. The bladder blade was inserted. A transverse incision was made in the lower uterine segment with the scalpel. The incision was extended superiorly and inferiorly with blunt pressure. The infants head delivered with fundal pressure followed by the shoulders and the rest of the body. The cord was milked toward the baby and after 1min it was clamped x2 and cut. The baby was handed to the associate professor of biblical studies. Cord blood was collected. The placenta delivered with fundal massage and gentle cord traction and appeared to be intact. The uterus was exteriorized and cleared of clots and debris. The uterine incision was closed with 0-vicryl in a running locked fashion with a second layer of suture imbricating the first. Good hemostasis was noted. The uterus w as placed back into the abdominal cavity. Clots were cleared from the peritoneal cavity with lap sponges. The incision was inspected once again and good hemostasis was noted. There was good hemostasis of the rectus muscles. The fascia was closed with 0- vicryl in a running unlocked fashion. The subcuticular layer was irrigated. The skin was closed with 4-0 vicryl in a running subcuticular fashion. The incision was cleaned. Mastisol and steristrips were placed. A dressing was placed. The fundus was palpated to be firm. The patient was moved to the stretcher and taken to the recovery room in stable condition. Date of Procedure: 11/16/24
[2024-11-16] MEDS: Ketorolac 30 MG/ML VIAL IVP (04:33)
--- NOTE | 2024-11-16 08:21 | W.ANESPOSTOP ---
Postoperative Evaluation Date, Time and Location Date Performed: 11/16/24 Time Performed: 08:16 Patient Location: Obstetrics Vital Signs Most Recent Imported Vital Signs: Most Recent Vital Signs Temp Pulse Resp BP Pulse Ox 37.4 C 94 H 16 99/55 L 99 11/16/24 04:15 11/16/24 07:15 11/16/24 05:00 11/16/24 07:15 11/16/24 06:11 Pain Score Most Recent Pain Score: Most Recent Pain Score Pain Level 4 11/15/24 14:28 Assessment Mental Status: Awake (Alert & Oriented to Patient Baseline) Airway and Respiratory Function: Patent airway with normal (patient baseline) respiratory exam Cardiovascular Function: Hemodynamically Stable Hydration Status: Adequately Hydrated Nausea & Vomiting: No Nausea or Vomiting Pain: Pain is tolerable per patient Peripheral Nerve Block: Patient did not receive a nerve block
[2024-11-16] MEDS: Docusate Sodium 100 MG CAP PO (10:46)
[2024-11-16] MEDS: Ibuprofen 600 MG TAB PO ×3 (10:47→22:35)
[2024-11-16] MEDS: Acetaminophen 325 MG TAB 650 MG PO ×3 (10:48→19:40)
--- NOTE | 2024-11-16 15:46 | W.PM.OBPNV1 ---
Date of service: 11/16/24 Time of Service: 13:00 Assessment and Plan Assessment and plan (1) History of section, low transverse: Assessment and plan: Pt is POD#0 s/p PCS for Cat 2 FHT remote from delivery with resulting 8lb 10oz . She is doing well. They do not plan to circumsize their son. likely D/C home POD #2 Subjective Subjective Narrative: Pt is doing well, got some rest. Minimal bleeding. Eat PO without issues. Pain well controlled on tylenol and motrin. Exam Physical Exam Vital signs: Temp Pulse Resp BP Pulse Ox 98.8 F 100 H 12 105/61 99 11/16/24 08:26 11/16/24 08:26 11/16/24 08:26 11/16/24 08:26 11/16/24 06:11 Vital Signs Reviewed: Yes Constitutional Constitutional: no acute distress and cooperative Detailed HEENT Exam Head: Present normocephalic and atraumatic Respiratory Exam Respiratory Exam: Normal Abdominal Exam Abdomen: Tender (mildly) Comments: Dressing clean, dry Fundal Exam Fundus: Below Umbilicus and Firm Detailed Neurological Exam Neurological: Present alert, oriented X3 and CN II-XII intact Results Hemoglobin/Hematocrit: Hgb Cancelled 11/15/24 21:31 Hct Cancelled 11/15/24 21:31 Abnormal Lab Findings: Abnormal Labs 11/15/24 14:10 WBC 13.25 H RBC 3.85 L Hgb 10.9 L Hct 32.3 L
[2024-11-17] VITALS (9 sets, daily range): BP systolic 98–113; BP diastolic 65–75; PULSE 75–94; RESP 18; TEMP 36.5–37.1; O2SAT 99
[2024-11-17] MEDS: Acetaminophen 325 MG TAB 650 MG PO ×5 (03:01→23:35)
[2024-11-17] MEDS: Ibuprofen 600 MG TAB PO ×4 (06:06→23:27)
[2024-11-17 08:11] LABS: Abs Immature Grans 0.04 10^3/uL (0.0-0.06); HCT 28.1 % (36.0-46.0); HGB 9.4 g/dL (11.2-15.7); Immature Grans % 0.4 %; MCH 28.5 pg (27.0-33.0); MCHC 33.5 % (32.0-36.0); MCV 85 fL (80-95); MPV 10.1 fL (8.0-11.0); Platelet Count 168 10^3/uL (130-400); RBC 3.30 10^6/uL (3.93-5.22); RDW 12.7 % (11.7-14.6); RDW-SD 38.7 fL; WBC 10.02 10^3/uL (4.4-10.8)
[2024-11-17] MEDS: Prenatal Multivitamin w/CA,FE TAB 1 TAB PO (08:31)
[2024-11-17] MEDS: Docusate Sodium 100 MG CAP PO ×2 (08:31→19:11)
--- NOTE | 2024-11-17 14:49 | W.PM.OBPNV1 ---
Date of service: 11/17/24 Time of Service: 14:49 Assessment and Plan Assessment and plan (1) History of section, low transverse: Assessment and plan: Postop day 2 status post primary low-transverse for suspected chorioamnionitis. Received antibiotics predelivery. No antibiotics postdelivery. Afebrile. White count is normal. Continue to monitor. Anticipate discharge to home postop day 3. Continue to breast-feed. Liberalize activity. All questions answered Subjective Subjective Interval history: Patient seen today. Doing well. Feeling more rested. Is breast-feeding without significant difficulty. Baby is cluster feeding. She has been afebrile. Her hemoglobin is stable at 9.4. Vitals are unremarkable. Overall doing well. I would anticipate discharge for her home tomorrow. They declined circumcision [place] feeding status: Exclusively breast feeding Exam Physical Exam Vital signs: Temp Pulse Resp BP Pulse Ox 98.2 F 82 18 98/65 L 99 11/17/24 08:30 11/17/24 08:30 11/17/24 08:30 11/17/24 08:30 11/16/24 20:00 Vital Signs Reviewed: Yes Constitutional Constitutional: no acute distress HEENT Exam HEENT Exam: Normal Neck Exam Neck Exam: Normal Respiratory Exam Respiratory Exam: Normal Cardiovascular Exam Cardiovascular Exam: Normal Abdominal Exam Abdomen: Tender Fundal Exam Fundus: Below Umbilicus and Firm Extremities Exam Extremity Exam: Normal and Edema (Minimal, bilateral); negative Calf Tenderness Skin Exam Skin Exam: Normal Neurological Exam Neurological Exam: Normal Psychiatric Exam Psychiatric Exam: Normal Results Hemoglobin/Hematocrit: Hgb 9.4 g/dL (11.2-15.7) L 11/17/24 07:50 Hct 28.1 % (36.0-46.0) L 11/17/24 07:50 Abnormal Lab Findings: Abnormal Labs 11/15/24 11/17/24 14:10 07:50 WBC 13.25 H RBC 3.85 L 3.30 L Hgb 10.9 L 9.4 L Hct 32.3 L 28.1 L Absolute Neutrophils 7.74 H
[2024-11-18] MEDS: Acetaminophen 325 MG TAB 650 MG PO ×2 (03:40→08:24)
[2024-11-18 03:57] VITALS: BP 99/67; PULSE 85; TEMP 37.1
[2024-11-18] MEDS: Ibuprofen 600 MG TAB PO (05:11)
[2024-11-18 08:00] VITALS: BP 106/75; PULSE 78; RESP 16; TEMP 36.7; O2SAT 99
[2024-11-18] MEDS: Prenatal Multivitamin w/CA,FE TAB 1 TAB PO (08:24)
[2024-11-18] MEDS: Docusate Sodium 100 MG CAP PO (08:25)
[2024-11-18] MEDS: Measles, Mumps, & Rubella Vaccine 0.5 ML VIAL SC (08:26)
--- NOTE | 2024-11-18 19:15 | DSE_ITS ---
Date of service: 11/18/24 Time of Service: 17:00 DS: Diagnosis Discharge Diagnosis (1) History of section, low transverse: Discharge Plan Disposition Patient Disposition: Home Condition: Good Discharge Details Reason For Visit: Labor Admit Date/Time: 11/15/24 13:57 Admit Provider: Ana Hui Attending Provider: Ana Hui Primary Care Provider: Unknown,Unknown Hospital Course Hospital Course: 34-year-old G1, P0 at 40 weeks presented to labor and delivery on November 15, 2024 for prodromal labor. She underwent morphine rest. Upon waking she was offered an epidural which she was preparing for when her water broke spontaneously to clear fluid around 1530 on 11/15. She received an epidural and was augmented with Pitocin. She developed a fever and concerns for intraamniotic and faction; she was therefore initiated on ampicillin and gentamicin as well as IV Tylenol. She developed a category 2 tracing which became persistent. She ultimately underwent a low-transverse section without issue. Antibiotics were discontinued , and her recovery was largely unremarkable. She was discharged on day 2 with instructions for close follow-up. Of note, today, she is found to be doing well. She is eating, ambulating, and urinating all without issue. Her pain is appropriately controlled. She declin es contraception at this time. She was counseled on the addictive potential of narcotics and encouraged to use them sparingly. She was further counseled on the signs symptoms and risks of depression. She will follow-up in the clinic in a week for incision check. Home Meds and New Rx's Prescriptions: No Action acetaminophen 325 mg capsule 325 mg PO ONCE PRN One Daily [id number] mg-mcg-mg combo pack 1 pkg PO DAILY Discharge Instructions Additional Instructions: ? Eat a well-rounded diet ? Ambulate regularly and engage in light activity while avoiding repeated heavy lifting (over 10 pounds) ? Take your medications as prescribed ? Please be sure to attend your follow-up visits ? If you have an incision, be sure to keep it clean and dry using simple soap and water; avoid scrubbing to avoid damage to suture ? If you have been prescribed narcotics such as tramadol or oxycodone or [place], please note these medications have an addictive potential and should be used sparingly.? Please discard of any leftover medication either with your local pharmacy or by flushing the medication.? Do not share these medications with other individuals, and have a low threshold for seeking immediate medical ev aluation if you experience any sleepiness, headaches, or any other concerns while using these medications. ? Please do not insert anything vaginally, including but not limited to, tampons, douching, or sexual intercourse, for a full 8 weeks and/or until you are medically cleared. ? If you have any concerns including fevers/chills, lightheadedness, visual changes, persistent headaches unresponsive to Tylenol, persistent nausea/vomiting, persistent abdominal pain, bruising and or leakage from your incision sites, excessive vaginal bleeding, or any other concerns, please have a low threshold for seeking immediate medical evaluation and/or reaching out to our clinic at [phone]. ? If you find yourself having crying spells you cannot explain, loss of appetite, persistent inability to sleep, lack of bonding with your baby, and/or general and persistent sadness, please feel free to reach out to our clinic immediately at [phone]. Stand Alone Forms: BC Instructions, BC Discharge Instruc Activity:: pelvic rest Equipment/Supplies:: No Equipment Needed Diet:: As Tolerated Discharge Orders Discharge Orders: Discharge Order (Routine); Ordered 11/18/24 Ordered By: Jeniffer Medellin Discharge Data Discharge Date/Time-TO BE ENTERED AT DEPARTURE: 11/18/24 12:10 OB:DS Summary Contraception Discussed Contraception Discussed: Yes, Gender-Baby A: Male weight: 8 lb 10.45 oz Status at Discharge Functional status at discharge: independent ambulation Overall status at discharge: patient is progressing back to baseline Mental Status: mental status grossly normal Speech and Movement: speech and movement normal Mood: congruent mood Affect: normal affect Exam Physical Exam Vital signs: Temp Pulse Resp BP Pulse Ox 98.1 F 78 16 106/75 99 11/18/24 08:00 11/18/24 08:00 11/18/24 08:00 11/18/24 08:00 11/18/24 08:00 Narrative: General: Well-nourished female in no immediate distress Pulmonary: No overt respiratory distress Abdomen: Soft nondistended, incision clean dry and intact Extremities: Trace edema noted equally bilaterally Psych: Appropriate PFSH All Active Problems (Updated 11/24/24 @ 14:49 by Mari Schwartz MD) Mild exercise-induced asthma (Acute) Surgical History (Updated 11/16/24 @ 17:18 by Mari Schwartz MD) History of section, low transverse 11/16/24 Dr. Schwartz Cat 2 FHT remote from delivery, Large baby Social History Smoking/Tobacco Use Status: Never Smoking risk assessment performed?: Yes Alcohol Intake: never Substance use type: does not use Housing: house Do you feel safe at home: Yes Do you feel safe in your relationship?: Yes History History 1 Para 0 Hx # Term Pregnancies 0 Multiple births 0 Hx # Pregnancies 0 Ectopic pregnancies 0 AB induced 0 Hx Number of Living Children 0 AB spontaneous 0 Past Pregnancies Del. Date GA/Weeks # Preg Succ Route Wgt Sex Labor Lgth Anesth esia Location [facility] 11/16/24 40 Yes 8 lb 10 oz Male Fadi Schwartz MD Delivery Date: 11/16/24 Last Updated by: Mari Schwartz MD [facility] - [place] Cat 2 FHT remote from delivery DS: Data Vitals/I&O Vitals and I&O: Vital Signs Temperature 98.1 F 11/18/24 08:00 Temperature 98.4 F 11/15/24 16:19 Temperature Source Oral 11/18/24 08:00 Pulse 78 11/18/24 08:00 Pulse 98 11/15/24 16:19 Pulse Rhythm Regular 11/18/24 08:00 Respiratory Rate 16 11/18/24 08:00 Respiratory Depth Normal 11/17/24 19:17 Blood Pressure 106/75 11/18/24 08:00 Blood Pressure 136/88 11/15/24 16:19 Blood Pressure Mean 85 11/18/24 08:00 Pulse Oximetry 99 11/18/24 08:00 Oxygen Delivery Method Room Air 11/15/24 14:28 Oxygen Flow Rate 0 11/15/24 14:28 Pain Level 6 11/18/24 08:24 Comment pt/so/and baby all asleep, VS deferred 11/17/24 16:08
== END 2024-11-18 12:10 | disposition home or self-care (01) | DRG 788 ==
LOC: BCD 11-16 08:52 → OBS 11-16 08:52
PROVIDERS: Obstetrics & Gynecology; Admitting Provider Advanced Practice Midwife; Visit Provider Advanced Practice Midwife
PROC: 10D00Z1 Extraction of Products of Conception, Low, Open Approach (ICD-10-PCS; CPT 59514; principal; 2024-11-16 02:35)
DX: O42.92 Full-term premature rupture of membranes, unspecified as to length of time between rupture and onset of labor (principal); O63.0 Prolonged first stage (of labor); Z3A.40 40 weeks gestation of pregnancy; Z37.0 Single live birth; O76 Abnormality in fetal heart rate and rhythm complicating labor and delivery; O99.52 Diseases of the respiratory system complicating childbirth; J45.990 Exercise induced bronchospasm; Z28.39 Other underimmunization status
CPT/HCPCS: 59514; 36415; 85027; 86850; 86900; 86901; 90707; 59025; 85025; 88307; J0131; J0290; J0665; J1580; J1885; J2270; J2274; J2371; J2405; J3010